=== PATIENT | male | born 1960 | race Caucasian/White ===

== ENCOUNTER 2016-12-23 19:09 | Inpatient (IN) ==
[2016-12-23] MEDS ORDERED: SODIUM CHLORIDE 0.9% 500 ML IV STA (19:33)
[2016-12-23 19:58] LABS: Basophils % 0.3 % (0.0-0.8); Eosinophils # 0.4 10*3/uL (0.0-0.87); Eosinophils % 4.8 % (0.00-10.9); Hematocrit 35.9 VOL% (42.0-52.0); Hemoglobin 12.4 GM/DL (14.0-18.0); Immature Granulocytes % 0.4 %; Immature Granulocytes Absolute 0.04 #; Lymphocytes # 2.3 10*3/uL (1.4-4.0); Lymphocytes % 24.5 % (21.2-54.2); Mean Corpuscular HGB Conc 34.5 GM/DL (32-36); Mean Corpuscular Hemoglobin 32 PG (27-34); Mean Corpuscular Volume 92.8 FL (87-102); Mean Platelet Volume 9.4 FL (9.6-12.0); Monocytes # 1.2 10*3/uL (0.11-0.8); Monocytes % 12.5 % (1.7-12.7); Neutrophils # 5.3 10*3/uL (1.4-7.4); Neutrophils % 57.5 % (38.7-73.9); Platelet Count 320 T/CUMM (130-400); Red Blood Count 3.87 MC/CUMM (3.8-5.5); Red Cell Distribution Width 12.8 % (9.3-17.3); White Blood Count 9.3 T/CUMM (4-12)
[2016-12-23 20:23] LABS: Alanine Aminotransferase 39 U/L (16-61); Albumin 3.6 G/DL (3.4-5.0); Alkaline Phosphatase 94 U/L (45-117); Aspartate Amino Transferase 27 U/L (0-37); Blood Urea Nitrogen 13 MG/DL (7-18); Glucose 97 MG/DL (74-106); Osmolality,Calculated 274.7 MOS/KG (273-304); Potassium 3.9 MMOL/L (3.5-5.1); Sodium 138 MMOL/L (136-145); Total Protein 7.4 G/DL (6.4-8.3); Troponin I Only < 0.015 NG/ML (0.00-0.045)
[2016-12-24] MEDS ORDERED: ONDANSETRON 4 MG/2 ML VIAL IV PRN (00:51)
[2016-12-24] MEDS ORDERED: hydrALAZINE 25 MG TABLET PO SCH ×2 (09:00→15:00)
[2016-12-24] MEDS: PANTOPRAZOLE 40 MG TABLET PO SCH (09:41)
[2016-12-24] MEDS: ASPIRIN 325 MG TABLET PO SCH (09:41)
[2016-12-24] MEDS ORDERED: NITROGLYCERIN SL 0.4 MG TABLET SL PRN (10:47)
[2016-12-24] MEDS ORDERED: traMADol 50 MG TABLET PO PRN (10:49)
[2016-12-24 10:56] LABS: Apearance,Urine CLEAR (Clear); Bilirubin,Urine Negative (Negative); Blood, Urine Negative (Negative); Glucose,Urine (UA) Negative (Negative); Ketones,Urine Negative (Negative); Nitrite,Urine Negative (Negative); Protein,Urine Negative; Urine Color Yellow (Yellow); Urine Specific Gravity 1.009 (1.001-1.035); Urine Urobilinogen < 2.0 EU/DL (0.2-1.0); WBC,Urine <1 /HPF (0-6)
[2016-12-24 12:02] LABS: Magnesium 1.9 MG/DL (1.8-2.4); Thyroid Stimulating Hormone 0.478 uIU/ml (0.358-3.74)
[2016-12-24] MEDS: CARVEDILOL 25 MG TABLET PO SCH ×2 (12:19→22:10)
[2016-12-24 12:59] LABS: Barbiturates Screen,Urine Negative (Negative); Benzodiazepines Screen,Urine Negative (Negative); Cannabinoid Screen,Urine Negative (Negative); Opiate Screen,Urine Positive (Negative); Phencyclidine Screen,Urine Negative (Negative)
[2016-12-24] MEDS: GABAPENTIN 100 MG CAPSULE PO SCH ×2 (15:28→22:11)
[2016-12-24] MEDS: BACITRACIN OINT 0.9 GM PACK TOP SCH (18:55)
[2016-12-24] MEDS ORDERED: MIRTAZAPINE 30 MG TABLET PO SCH (21:00)
[2016-12-24] MEDS: MELATONIN 3 MG TABLET PO SCH (22:10)
[2016-12-24] MEDS: HydrOXYzine PAMOATE 50 MG CAPSULE PO SCH (22:10)
[2016-12-24] MEDS: MIRTAZAPINE 15 MG TABLET PO SCH (22:11)
[2016-12-25] MEDS: KETOROLAC 15 MG/1 ML VIAL IV PRN ×2 (05:00→10:44)
[2016-12-25 05:54] LABS: Basophils # 0.1 10*3/uL (0.0-0.2); Basophils % 0.6 % (0.0-0.8); Eosinophils # 0.4 10*3/uL (0.0-0.87); Eosinophils % 4.5 % (0.00-10.9); Hematocrit 35.2 VOL% (42.0-52.0); Hemoglobin 12.3 GM/DL (14.0-18.0); Immature Granulocytes % 0.2 %; Immature Granulocytes Absolute 0.02 #; Lymphocytes # 2.1 10*3/uL (1.4-4.0); Lymphocytes % 25.8 % (21.2-54.2); Mean Corpuscular HGB Conc 34.9 GM/DL (32-36); Mean Corpuscular Hemoglobin 32 PG (27-34); Mean Corpuscular Volume 92.1 FL (87-102); Mean Platelet Volume 9.7 FL (9.6-12.0); Monocytes # 1.1 10*3/uL (0.11-0.8); Monocytes % 13.4 % (1.7-12.7); Neutrophils # 4.6 10*3/uL (1.4-7.4); Neutrophils % 55.5 % (38.7-73.9); Platelet Count 275 T/CUMM (130-400); Red Blood Count 3.82 MC/CUMM (3.8-5.5); Red Cell Distribution Width 12.6 % (9.3-17.3); White Blood Count 8.2 T/CUMM (4-12)
[2016-12-25 06:30] LABS: Osmolality,Calculated 281.3 MOS/KG (273-304); Potassium 3.9 MMOL/L (3.5-5.1)
[2016-12-25] MEDS: CARVEDILOL 25 MG TABLET PO SCH ×3 (06:45→21:27)
[2016-12-25] MEDS: CHLORTHALIDONE 25 MG TABLET PO SCH ×3 (06:45→11:06)
[2016-12-25] MEDS ORDERED: NON-FORMULARY MEDICATION (Omeprazole [Prilosec] 20 MG) PO SCH (08:00)
[2016-12-25] MEDS: LISINOPRIL 20 MG TABLET PO SCH (08:00)
[2016-12-25] MEDS: ASPIRIN 325 MG TABLET PO SCH (10:40)
[2016-12-25] MEDS: GABAPENTIN 100 MG CAPSULE PO SCH ×3 (10:40→21:27)
[2016-12-25] MEDS: PANTOPRAZOLE 40 MG TABLET PO SCH (10:41)
[2016-12-25] MEDS: cloNIDine 0.1 MG TABLET PO SCH ×3 (12:01→22:01)
[2016-12-25] MEDS: BACITRACIN OINT 0.9 GM PACK TOP SCH (13:28)
[2016-12-25] MEDS ORDERED: oxyCODONE/ACETAMINOPHEN 5-325 MG TABLET PO PRN (15:12)
[2016-12-25] MEDS ORDERED: cloNIDine 0.1 MG TABLET PO SCH (21:00)
[2016-12-25] MEDS: MIRTAZAPINE 15 MG TABLET PO SCH (21:27)
[2016-12-25] MEDS: HydrOXYzine PAMOATE 50 MG CAPSULE PO SCH (21:27)
[2016-12-25] MEDS: MELATONIN 3 MG TABLET PO SCH (21:27)
[2016-12-25] MEDS: oxyCODONE/ACETAMINOPHEN 5-325 MG TABLET PO PRN (21:28)
[2016-12-26] MEDS: oxyCODONE/ACETAMINOPHEN 5-325 MG TABLET PO PRN ×3 (03:18→14:26)
[2016-12-26 05:20] LABS: Calcium 8.7 MG/DL (8.5-10.1)
[2016-12-26 05:21] LABS: Osmolality,Calculated 277.5 MOS/KG (273-304); Potassium 3.7 MMOL/L (3.5-5.1)
[2016-12-26 05:22] LABS: Risk Ratio 3.82; VLDL CHOLESTEROL 28.4 MG/DL
[2016-12-26] MEDS: cloNIDine 0.1 MG TABLET PO SCH ×2 (08:57→14:26)
[2016-12-26] MEDS: PANTOPRAZOLE 40 MG TABLET PO SCH (08:58)
[2016-12-26] MEDS: GABAPENTIN 100 MG CAPSULE PO SCH ×2 (08:59→14:26)
[2016-12-26] MEDS: ASPIRIN 325 MG TABLET PO SCH (08:59)
[2016-12-26] MEDS: CHLORTHALIDONE 25 MG TABLET PO SCH (08:59)
[2016-12-26] MEDS: LISINOPRIL 20 MG TABLET PO SCH (08:59)
[2016-12-26] MEDS: CARVEDILOL 25 MG TABLET PO SCH (08:59)
[2016-12-26 11:46] VITALS: BP 114/75
[2016-12-26] MEDS: BACITRACIN OINT 0.9 GM PACK TOP SCH (14:05)
== END 2016-12-26 14:42 | disposition home or self-care (01) | DRG 204 ==
LOC: EDUNIT# → EDBD → N.ED 19:09 → N.EDINP 21:55 → N.TELES 12-24 00:11
PROVIDERS: ADMIT Internal Medicine; ATTEND Internal Medicine